=== PATIENT | male | born 1960 | race Caucasian/White ===

== ENCOUNTER 2018-11-26 12:16 | Observation (INO) ==
--- NOTE | 2018-11-26 12:33 | ERNOTE ---
Upper Extremity HPI - Narrative Date of Service: 11/26/18 - General Extremities Pain Location: thumb: right Time Seen by Provider: 11/26/18 12:21 Source: patient Exam Limitations: no limitations - Immun/Allergies/Home Medications Immunizations: IMMUNIZATION HX Immunizations Up to Date No History of Influenza Vaccine No Hx Pneumococcal Vaccination No Allergies/Adverse Reactions: Allergies Allergy/AdvReac Type Severity Reaction Status Date / Time No Known Allergies Allergy Unverified 11/26/18 12:28 - Pain Score Pain Score #1 Pain Score: 4 - History of Present Illness Narrative: The patient is a 58 year old male who presents for abscess to right thumb which has been present since Sunday. There are associated symptoms of drainage. The patient reports right thumb pain, 4/10. There are no alleviating factors. There are aggravating factors of ROM. Previous treatments have included: none. The past medical history includes: noncontributory. The social history is positive for current tobacco use. The patient has had no ill contacts. Patient states he noted redness and slight swelling while at work on Sunday. Patient states he went home and did not do any other activities over the weekend. Patient states he thinks he may have scraped area on his putty knife which was in his pocket. Review of Systems - Review of Systems Constitutional: Present: no symptoms reported. Absent: fever, fatigue EYE: Present: no symptoms reported ENT: Present: nose congestion, nasal drainage. Absent: ear pain, sore throat Respiratory: Present: no symptoms reported. Absent: shortness of breath, cough Cardiology: Present: no symptoms reported. Absent: chest pain Gastrointestinal/Abdominal: Present: no symptoms reported. Absent: nausea, vomiting, diarrhea Genitourinary: Present: no symptoms reported Musculoskeletal: Present: joint pain Skin: Present: lesions, change in color All Other Systems: All systems neg except as marked Social History: Preferred Language Malay Do you have any catholic or No cultural preference? Smoking Status Current every day smoker Have you smoked in the past 12 Yes months Do you dip or chew tobacco No Alcohol Use sober No Social History Section defined Physical Exam - Physical Exam General Appearance: Present: wd/wn, alert, no apparent distress Head Exam: Present: normal inspection Eye Exam: Normal inspection: bilateral Neck: Present: normal inspection Respiratory: Present: no respiratory distress, normal breath sounds, no accessory muscle use, lungs clear Cardiovascular/Chest: Present: regular rate, rhythm, systolic murmur Peripheral Pulses: N=norm/S=strong/W=weak/B=bound/A=absent: Radial (R): Normal Extremity Exam: Present: decreased range of motion, joint redness - over dorsal 1st MP joint, erythema extending to dorsal hand and anterior wrist, joint swelling - erythema over right 1st MP joint with purulent draining abscess with fluctuance, erythema with 2+ pitting edema to dorsal hand. Absent: bony tenderness Neurological Exam: Present: alert, oriented, normal mood/affect Skin Exam: Present: normal color, warm/dry Progress - Date and Time Seen: Date and Time: 11/26/18 12:42 Images of wound sent via [email or web address] to for evaluation. 11/26/18 12:52 Plan for patient to go to OR for abscess. 11/26/18 13:19 Patient is employeed by [employer], Katie present and states will file under workmans comp. Katie states patient does not need post accident screening. - Vital Signs Patient's Vital Signs:: I have reviewed the patient's vital signs. Vital Signs: Vital Signs 11/26/18 12:23 Temperature 36.1 C Pulse Rate 89 Respiratory Rate 14 Blood Pressure 143/79 H O2 Sat by Pulse Oximetry 100 - X-Ray X-Ray #1 X-Ray: hand Interpretation: Reviewed by me X-ray Comments: FINDINGS/IMPRESSION: 1. No definable fracture lucency or cortical discontinuity. No definite signs of osteolytic or osteoblastic process or signs of mineralized periostitis to suggest osteomyelitis. 2. There is no evidence for dislocation. Patient has arthropathy of the right hand characterized by joint space narrowing, and marginal osteophytes involving predominantly the first through fifth metacarpophalangeal joints, and the distal interphalangeal joints of the second through fifth digits, consistent with osteoarthritis versus calcium pyrophosphate deposition (CPPD) disease arthropathy. Patient has prominent hooklike osteophytes at the third metacarpal head, which can be associated with CPPD arthropathy, versus arthropathy associat ed with hyperparathyroidism. There is no definite signs of adjacent erosions. 3. Diffuse soft tissue swelling noted, especially over the dorsal aspect of the hand, at the level of the metacarpal bones and the MCP joints as well as adjacent to the first MCP joint. There is no evidence for soft tissue gas. Electronically signed by Katja Gleason M.D.. - Progress/Reassessment Chief Complaint: Hand Injury/Pain Departure Clinical Impression: Cellulitis and abscess of hand - Departure Disposition: Still a patient Condition: Good
[2018-11-26] MEDS ORDERED: NORMAL SALINE 1,000 ML IV PRN (13:08)
[2018-11-26] MEDS ORDERED: MORPHINE SULFATE 2 MG/ML DISP.SYRIN IV PRN (13:11)
--- NOTE | 2018-11-26 14:42 | ANES ---
Anesthesia Pre Procedure Eval Vitals/Labs: Last Vital Signs Temp 36.4 C 11/26/18 14:17 Pulse 86 11/26/18 14:17 Resp 18 11/26/18 14:17 BP 133/73 11/26/18 14:17 Pulse Ox 100 11/26/18 14:17 Allergies/Adverse Reactions: Allergies Allergy/AdvReac Type Severity Reaction Status Date / Time No Known Allergies Allergy Verified 11/26/18 14:24 - Planned Procedure Planned Procedure: thumb Medication List Reviewed:: Yes Allergies Verified: Yes Medical History (Updated 11/26/18 @ 14:23 by Duyen Delgado RN) No pertinent past medical history Surgical History (Updated 11/26/18 @ 14:23 by Duyen Delgado RN) History of appendectomy Family History (Last Reviewed 11/26/18 @ 14:41 by Noé Floyd CRNA) Father Myocardial infarction Mother Cancer - Family Anesthesia History Family History:: no untoward family reactions to anesthesia - Airway/Neck/Teeth Teeth Condition: missing, poor condition Neck Exam: full range of motion Mallampatti Score: 1 Thyromental (T-M) distance: > 6 cm Mandibulo Hyoid distance: > 3 cm - Respiratory Respiratory Physical: lungs clear, decreased breath sounds Smoking Status: Current every day smoker Discussed smoking cessation including day of surgery: Yes Sleep Apnea currently treated: No Sleep Apnea by current assessment: No - Cardiovascular Tolerate Activity: Fair Heart Sounds: S1 & S2, Regular - Anesthesia Assessment and Plan ASA Class: PS, II, E Anesthesia Type Plan: General LMA Planned difficult intubation/equipment available: No
[2018-11-26 15:50] LABS: Hematocrit 37.1 % (42.0-52.0); Hemoglobin 12.5 gm/dL (13.5-18.0); Mean Corpuscular Hgb Conc 33.7 g/dl (32-36); Mean Platelet Volume 8.9 fl (8-11.3); Neutrophil # 6.6 K/mm3 (1.3-6.0); Neutrophil % 71.6 % (42-75.0); Platelet Count 204 K/mm3 (150-450); Red Blood Count 4.17 M/mm3 (4.7-6.0); Red Cell Distribution Width 13.3 % (11.5-14.0); White Blood Count 9.2 K/mm3 (4.0-10.5)
[2018-11-26 16:01] LABS: Anion Gap 11.3 mmol/L (6.8-13.8); BUN/Creatinine Ratio 16.3 (9.0-21.6); Calcium * 8.9 mg/dL (7.9-10.9); Carbon Dioxide 28.5 mmol/L (24-32.6); Estimated Creat Clear 87.5; Potassium 3.8 mmol/L (3.4-4.6)
--- NOTE | 2018-11-26 16:42 | HP ---
Chief Complaint - Chief Complaint Date of Service: 11/26/18 Time of Service: 16:36 Chief Complaint: Right thumb redness and swelling History of Present Illness: While is a 58-year-old male who presented to the emergency department today with complaint of right thumb redness and swelling. He states he started noticing it about a week ago. It has progressively worsened over the weekend and over the last 2 days and has started draining. Evaluation in the emergency department demonstrated an abscess over the MCP joint of the right thumb with significant surrounding erythema and swelling of the entire dorsum of the hand. Orthopedics was consulted for further evaluation management. He denies any cuts, laceration, or obvious abrasion to that area. He states he may have scraped it on a putty knife sometime in the middle of last week. He denies fevers or chills currently. Medical History (Updated 11/26/18 @ 14:23 by Duyen Delgado RN) No pertinent past medical history Surgical History: Surgical History (Updated 11/26/18 @ 14:23 by Duyen Delgado RN) History of appendectomy Family History: Family History (Last Reviewed 11/26/18 @ 16:22 by JEAN CLAUDE Mcqueen) Father Myocardial infarction Mother Cancer Social History: Patient Lives/Resources Home Utilized Preferred Language Singaporean Do you have any episcopal or No cultural preference? Smoking Status Current every day smoker Have you smoked in the past 12 Yes months Do you dip or chew tobacco No Alcohol Use sober No Social History Section defined Review Of Systems (GEN) - Review of Systems Misc: All systems neg except as marked Immunizations: IMMUNIZATION HX Immunizations Up to Date No History of Influenza Vaccine No Hx Pneumococcal Vaccination No Allergies/Adverse Reactions: Allergies Allergy/AdvReac Type Severity Reaction Status Date / Time No Known Allergies Allergy Verified 11/26/18 14:24 Exam - Exam Vital Signs: Vital Signs - Last Taken Temp 36.4 C 11/26/18 14:17 Pulse 86 11/26/18 14:17 Resp 18 11/26/18 14:17 BP 133/73 11/26/18 14:17 Pulse Ox 100 11/26/18 14:17 Comprehensive Narrative: 11/26/18 16:38 Gen: A&Ox3, NAD Resp: breathing non-labored on RA CV: RRR MSK: ~2x3 cm abscess over ulnar aspect of dorsal thumb MCP joint, surrounding erythema, overlying ulceration with purulent drainage, pitting edema of dorsum o f hand, SILT, cap refill brisk Diagnostic Studies: Abnormal Lab Results 11/26/18 Range/Units 15:30 RBC 4.17 L (4.7-6.0) M/mm3 Hgb 12.5 L (13.5-18.0) gm/dL Hct 37.1 L (42.0-52.0) % Immature Gran # (Auto) 0.04 H (0.000-0.0310) K/mm3 Lymphocytes % 13.8 L (20-51) % Monocytes % 11.2 H (0.0-9) % Neutrophils # 6.6 H (1.3-6.0) K/mm3 Lymphocytes # 1.27 L (1.5-3.5) k/mm3 Laboratory Results WBC 9.2 K/mm3 (4.0-10.5) 11/26/18 15:30 RBC 4.17 M/mm3 (4.7-6.0) L 11/26/18 15:30 Hgb 12.5 gm/dL (13.5-18.0) L 11/26/18 15:30 Hct 37.1 % (42.0-52.0) L 11/26/18 15:30 MCV 89.0 fl (78-100) 11/26/18 15:30 MCH 30.0 pg (27-31) 11/26/18 15:30 MCHC 33.7 g/dl (32-36) 11/26/18 15:30 RDW 13.3 % (11.5-14.0) 11/26/18 15:30 Plt Count 204 K/mm3 (150-450) 11/26/18 15:30 MPV 8.9 fl (8-11.3) 11/26/18 15:30 Immature Gran % (Auto) 0.40 % (0.001-0.429) 11/26/18 15:30 Immature Gran # (Auto) 0.04 K/mm3 (0.000-0.0310) H 11/26/18 15:30 71.6 % (42-75.0) 11/26/18 15:30 13.8 % (20-51) L 11/26/18 15:30 11.2 % (0.0-9) H 11/26/18 15:30 2.8 % (0.0-3.0) 11/26/18 15:30 0.2 % (0.0-1.0) 11/26/18 15:30 Nucleated RBC % 0.0 k/mm3 (0-1) 11/26/18 15:30 6.6 K/mm3 (1.3-6.0) H 11/26/18 15:30 1.27 k/mm3 (1.5-3.5) L 11/26/18 15:30 1.0 k/mm3 (0.0-1.0) 11/26/18 15:30 0.3 k/mm3 (0.0-0.7) 11/26/18 15:30 Absolute Basophils 0.0 k/mm3 (0.0-0.1) 11/26/18 15:30 Sodium 138 mmol/L (132-142) 11/26/18 15:30 138 mmol/L (130-142) 11/26/18 15:30 Potassium 3.8 mmol/L (3.4-4.6) 11/26/18 15:30 Chloride 102 mmol/L (97-106) 11/26/18 15:30 Carbon Dioxide 28.5 mmol/L (24-32.6) 11/26/18 15:30 11.3 mmol/L (6.8-13.8) 11/26/18 15:30 BUN 15 mg/dL (6-23) 11/26/18 15:30 0.92 mg/dL (0.4-1.4) 11/26/18 15:30 Est GFR (Non-Af Amer) 90 mL/min (60-130) 11/26/18 15:30 16.3 (9.0-21.6) 11/26/18 15:30 98 mg/dL (70-110) 11/26/18 15:30 Calcium 8.9 mg/dL (7.9-10.9) 11/26/18 15:30 Assessment/Plan - Narrative Narrative: 58 yo M w/ R thumb abscess. -to OR for I&D of right thumb abscess -informed consent obtained, risks/benefits discussed -NPO -hold abx until intraoperative cultures obtained -plan for 24 hrs postoperative abx -will adjust abx based on culture results
[2018-11-26] MEDS ORDERED: BUPIVACAINE HCL 50 ML VIAL IJ ONE (17:18)
[2018-11-26] MEDS ORDERED: VANCOMYCIN HCL 1 GM in DEXTROSE 5 % IN WATER 250 ML IV ONE ×2 (17:30)
[2018-11-26] MEDS ORDERED: diphenhydrAMINE HCL 50 MG/ML VIAL IV PRN (17:38)
[2018-11-26] MEDS ORDERED: HYDROcodone/ACETAMINOPHEN 1 EACH TABLET PO PRN ×2 (17:38)
[2018-11-26] MEDS ORDERED: ONDANSETRON HCL/PF 2 MG/ML VIAL IV PRN (17:38)
[2018-11-26] MEDS ORDERED: ACETAMINOPHEN 500 MG TABLET PO PRN (17:38)
--- NOTE | 2018-11-26 17:50 | OR ---
Operative Report - Dictated Report Narrative: Date: 11/26/2018 Physician: Leonard Figueredo M.D. Rubber Goods Inspector Tester: Umang Sebastian PA-C Preoperative diagnosis: Right dorsal thumb abscess Postoperative diagnosis: Right dorsal thumb abscess measuring 2 x 4 cm Procedure: Irrigation and debridement of right dorsal thumb abscess including skin and subcutaneous tissue approximately 8 cm Anesthesia: General plus local Complications: None Estimated blood loss: Minimal Tourniquet time: None Specimens: Swab culture x1, tissue culture x1 Retained implants: None Drains: 7 Fr TLS Indications: Luisito is a 58 year-old male who developed redness and swelling over the dorsum of his thumb approximately 6 days ago. This progressively worsened to the point where he developed an ulceration and purulent drainage and he presented to the [facility] emergency department for further evaluation. I counseled him that I recommended surgical drainage given the size of the abscess. I counseled him on the risks of surgery including, but not limited to, bleeding, persistent infection, dorsal branch of the ulnar nerve injury, extensor pollicis longus injury, wound complications, need for additional procedures, and risks with anesthesia. After discussion he wished to proceed and informed consent was obtained. Procedure: After marking the correct extremity in the preoperative holding area, a timeout was performed in the operating room. IV antibiotics were held prior to the procedure in anticipation of intraoperative cultures. A well-padded tourniquet was applied to the operative upper arm. The operative arm was then prepped and draped in usual sterile fashion after pre-scrubbing with chlorhexidine. 0.5% Marcaine was used to perform a field block around the abscess. Using Loupe magnification, a longitudinal incision was made directly over the abscess approximately 2-1/2 cm in length. Gross purulence was immediately encountered and this was cultured with a swab. Tenotomy scissors were used to break up any loculations in the abscess. A rongeur was used to obtain tissue cultures. At this point, 1 g of vancomycin was given intravenously. We proceeded with a thorough mechanical debridement of the abscess using a curette. Next, the wound was thoroughly irrigated with 3 L of normal saline. Once there was no excessive bleeding, a 7 Syriac TLS drain was placed in the wound. The wound was approximated with interrupted 4-0 nylon. Xeroform, 4 x 4's, soft roll, and an JOSE wrap was applied. The patient was awoken and transferred to the post- anesthesia care unit in stable condition. All sponge, needle, blade, and instrument counts were correct prior to closing the wounds. Additional 0.5% Marcaine without epinephrine was infused into the skin edges for pain control.
--- NOTE | 2018-11-26 18:04 | ANES ---
Post Anesthesia Discharge - Transfer of Care Transfer of Care handoff given to nurse: Yes - Discharge from PACU Discharge from PACU when meets criteria: Yes
--- NOTE | 2018-11-26 18:05 | ANES ---
Post Anesthesia Assessment - Vital Signs Vitals: Last Vital Signs Temp 36.5 C 11/26/18 17:45 Pulse 74 11/26/18 17:50 Resp 14 11/26/18 17:50 BP 117/70 11/26/18 17:50 Pulse Ox 100 11/26/18 17:50 Airway Patency: Normal - Mental Status Level Of Consciousness: Awake - Pain Level Pain Score: 0 - N/V Assessment Nausea/Vomiting Presence: None Dehydration:: No
[2018-11-26] MEDS ORDERED: SENNOSIDES/DOCUSATE SODIUM 1 TAB TABLET PO SCH (21:00)
[2018-11-27] MEDS: VANCOMYCIN HCL 1 GM in DEXTROSE 5 % IN WATER 250 ML IV SCH ×4 (05:13→15:06)
--- NOTE | 2018-11-27 15:05 | DS ---
Description of Stay: The patient was taken to the OR on 11/26/2018 for irrigation and debridement of a right dorsal thumb abscess. The patient tolerated the procedure well there were no complications. Intraoperative cultures were obtained and are still pending. Patient's vital signs were followed and remained stable postoperatively on the floor. He was admitted for observation and 2 more doses of IV vancomycin postoperatively. Pain was controlled with oral pain medications. He was deemed stable for discharge the following day after his final dose of antibiotics. His drain was pulled prior to discharge. We will discharge him on 2 weeks of oral Bactrim for presumed MRSA infection. We will adjust antibiotics accordingly as an outpatient once we have sensitivities. Procedures Performed: see notes below List Procedures: Irrigation and debridement of right dorsal thumb abscess. - 11/26/18 Results and Findings: Pending Mircobiology Results 11/26/18 17:10 Other - Right Abscess Culture - Preliminary Ruling Out Pathogen 11/26/18 17:10 Other - Right Miscellaneous Culture - Preliminary No Growth Lab Pending Results 11/26/18 15:30: WBC 9.2, RBC 4.17 L, Hgb 12.5 L, Hct 37.1 L, MCV 89.0, MCH 30.0, MCHC 33.7, RDW 13.3, Plt Count 204, MPV 8.9, Immature Gran % (Auto) 0.40, Immature Gran # (Auto) 0.04 H, Neutrophils % 71.6, Lymphocytes % 13.8 L, Monocy tyree % 11.2 H, Eosinophils % 2.8, Basophils % 0.2, Nucleated RBC % 0.0, Neutrophils # 6.6 H, Lymphocytes # 1.27 L, Monocytes # 1.0, Eosinophils # 0.3, Absolute Basophils 0.0 11/26/18 15:30: Sodium 138, Plasma Sodium 138, Potassium 3.8, Chloride 102, Carbon Dioxide 28.5, Anion Gap 11.3, BUN 15, Creatinine 0.92, Est GFR (Non-Af Amer) 90, BUN/Creatinine Ratio 16.3, Random Glucose 98, Calcium 8.9 Discharge Location: Home Disposition: Home self-care Condition: Good Discharge Activity: Non-Weight bearing Discharge Diet: General/regular food Additional Patient Instructions (free text): Orthopedic Discharge Instructions: -Bactrim DS 1 tab BID for 14 days. -Oral pain medication. -Keep current dressing in place until follow up. Keep completely clean and dry. -Notify the office of any excessive drainage or if the dressing becomes wet or soiled. -Follow up in Orthopedic office with Dr. Figueredo 12/02 at 12:45pm. Prescriptions (Any new or edited meds): Sulfamethoxazole/Trimethoprim [Bactrim Ds] 1 tab PO BID #28 tab HYDROcodone/ACETAMINOPHEN [Marissa 5-325 Tablet] 1 - 2 tab PO Q6H PRN #30 tablet MDD 8 PRN Reason: Pain Complete Home Medications List: Complete Home Medication List: HYDROcodone/ACETAMINOPHEN [Marissa 5-325 Tablet] 1 - 2 tab PO Q6H PRN #30 tablet MDD 8 11/27/18 Sulfamethoxazole/Trimethoprim [Bactrim Ds] 1 tab PO BID #28 tab 11/27/18
[2018-11-27 15:15] VITALS: BP 120/60
== END 2018-11-27 17:10 | disposition home or self-care (01) ==
LOC: MS 12:16 → ER 12:16 → SUR 13:06 → MS 15:48 → AMB 15:48
PROVIDERS: ADMIT Orthopaedic Surgery; ATTEND Orthopaedic Surgery
DX: L02.511 Cutaneous abscess of right hand
CPT/HCPCS: 36415; 73130; 80048; 85025; 87070; 87075; 87077; 87186; 88304; 88312; 96365; 96366; 99285; G0378